=== PATIENT | female | born 2000 | race Caucasian/White ===

== ENCOUNTER 2022-01-05 05:34 | Inpatient (IN) | payer OTHER ==
[2022-01-05] MEDS ORDERED: Naloxone HCl 0.4 mg/ml Vial IV PRN (11:10)
[2022-01-05] MEDS ORDERED: Dextrose 5 % And 0.9 % NaCl 1,000 ML IV SCH (11:15)
[2022-01-05] MEDS ORDERED: Ondansetron ODT 4 MG TAB PO PRN (12:23)
[2022-01-05] MEDS ORDERED: Acetaminophen 325 MG TAB PO PRN (12:23)
[2022-01-05 12:35] VITALS: BMI 26.4
[2022-01-06 04:07] LABS: #Lymphocytes 2.4 thou/uL (1.20-3.40); #Monocytes 0.7 thou/uL (0.11-0.59); #Neutrophils 3.9 thou/uL (1.40-6.50); %Basophils 0.4 % (0.0-1.0); %Eosinophils 0.6 % (0.0-10.0); %Lymphocytes 34.4 % (28.0-48.0); %Monocytes 9.3 % (0.0-4.0); %Neutrophils 55.4 % (31.0-61.0); Mean Corpuscular HGB CONC 30.8 g/dL (32.0-36.0); Mean Corpuscular Hemoglobin 27.3 pg (25.0-35.0); Mean Corpuscular Volume 88.7 fL (78.0-98.0); Mean Platelet Volume 9.2 fL (7.4-10.4); Platelet Count 217 thou/uL (130-400); RBC Distribution Width 15.2 % (11.5-14.5); Red Blood Cell (RBC) Count 4.41 mill/uL (4.00-5.20)
[2022-01-06 04:34] LABS: ALT (SGPT) 12 U/L (8-55); AST (SGOT) 18 U/L (5-34); Albumin 3.1 g/dL (3.5-5.0); Alkaline Phosphatase 66 U/L (40-100); Anion Gap 10 mmol/L (10-20); BUN (Urea Nitrogen) Less than 4 mg/dL (7.0-18.7); Bilirubin, Total 0.3 mg/dL (0.2-1.2); Calc. Creatinine Clearance 161 mL/min (70-130); Calcium 8.7 mg/dL (7.8-10.44); Carbon Dioxide 26 mmol/L (22-29); Chloride 105 mmol/L (98-107); Globulin 2.8 g/dL (2.4-3.5); Glucose 96 mg/dL (70-105); Potassium 3.4 mmol/L (3.5-5.1); Protein, Total 5.9 g/dL (6.0-8.3); Sodium 138 mmol/L (136-145)
[2022-01-06] MEDS ORDERED: Enoxaparin Sodium 30 MG/0.3 ML SYRINGE SC SCH (09:00)
[2022-01-06] MEDS ORDERED: Potassium Chloride 20 MEQ TAB PO SCH (09:30)
[2022-01-06] MEDS ORDERED: Promethazine HCl 25 MG in Sodium Chloride 0.9% 50 ML IVPB PRN (16:19)
[2022-01-06] MEDS ORDERED: Sodium Chloride 0.9% 1,000 ML IV SCH (16:30)
[2022-01-07 01:41] VITALS: BP 120/62; TEMP 98.6
[2022-01-07] MEDS ORDERED: Enoxaparin Sodium 40 MG/0.4 ML SYRINGE SC SCH (09:00)
== END 2022-01-07 01:20 | DRG 917 ==
LOC: ERS 05:34 → ERHOLD 06:14 → 2NO 11:10
PROVIDERS: ADMIT Hospitalist; ATTEND Physician Assistant Medical
DX: T42.4X1A Poisoning by benzodiazepines, accidental (unintentional), initial encounter (principal); G93.41 Metabolic encephalopathy; R45.851 Suicidal ideations; T40.601A Poisoning by unspecified narcotics, accidental (unintentional), initial encounter; Z20.822 Contact with and (suspected) exposure to COVID-19; F15.10 Other stimulant abuse, uncomplicated; F11.10 Opioid abuse, uncomplicated; F12.10 Cannabis abuse, uncomplicated; E87.6 Hypokalemia
CPT/HCPCS: 36415; 80053; 85025; 99284; J1650; J7042